=== PATIENT | female | born 1985 | race Caucasian/White ===

== ENCOUNTER 2018-08-08 08:42 | Emergency (ER) | payer MEDICAID ==
[2018-08-08 09:24] LABS: BASOPHILS 0.3 % (0-2); EOSINOPHILS 1.5 % (0-7); IMMATURE GRANULOCYTES 0.2 % (0-5); LYMPHOCYTES 16.2 % (15-50); MCH 27.7 pg (26.0-34.0); MCHC 32.5 g/dL (31.0-37.0); MCV 85.1 fL (80.0-100.0); MEAN PLATELET VOLUME 9.9 fL (7.4-10.4); MONOCYTES 10.3 % (2-11); NEUTROPHILS 71.5 % (40-80); PLATELET COUNT 267 10x3/uL (130-400); RDW 13.3 % (11.5-14.5); WBC 6.2 10x3/uL (4.8-10.8)
[2018-08-08 09:41] LABS: ALBUMIN 3.7 g/dL (3.4-5.0); ALKALINE PHOSPHATASE 83 U/L (46-116); ALT (SGPT) 20 U/L (10-68); BILIRUBIN - TOTAL 0.33 mg/dL (0.2-1.3); CALC OSMOLALITY 276 mosm/kg (275-300); CALCIUM 8.5 mg/dL (8.5-10.1); CHLORIDE - SERUM 102 mmol/L (98-107); CREATININE - SERUM 0.9 mg/dL (0.6-1.3); GLUCOSE 89 mg/dL (74-106); POTASSIUM - SERUM 3.9 mmol/L (3.5-5.1); PROTEIN - SERUM 7.7 g/dL (6.4-8.2); SODIUM 140 mmol/L (136-145); UREA NITROGEN 9 mg/dL (7-18); eGFR NON AFRICAN AMERICAN 76 mL/min (90-120)
== END 2018-08-08 10:15 | disposition home or self-care (01) ==
LOC: D.ER 08:42
PROVIDERS: Family Medicine
DX: J20.9 Acute bronchitis, unspecified (principal); R05 Cough; J06.9 Acute upper respiratory infection, unspecified; R09.89 Other specified symptoms and signs involving the circulatory and respiratory systems

== ENCOUNTER 2019-02-21 07:23 | Emergency (ER) | payer MEDICAID ==
[~2019-02-21] VITALS: Ht 175.3 cm; Wt 129.3 kg
[~2019-02-21 07:23] MED LIST: MEDROL DOSE PACK4 MG PO; ZPAK PO
[2019-02-21 07:50] VITALS: Ht 175.3 cm; Wt 129.3 kg
[2019-02-21] MEDS ORDERED: CLEOCIN HCL300 MG PO (08:51)
[2019-02-21] MEDS ORDERED: FLUTICASONE PRO16 GM NASAL (08:51)
[2019-02-21 09:37] VITALS: BP 138/83
== END 2019-02-21 09:03 | disposition home or self-care (01) ==
LOC: D.ER 07:23
DX: J01.90 Acute sinusitis, unspecified (principal)